=== PATIENT | female | born 1995 | race Caucasian/White ===

== ENCOUNTER 2022-06-12 10:59 | Outpatient (CLI) | payer OTHER, SELFPAY ==
--- NOTE | 2022-06-12 11:23 | US_ITS ---
WS: [id number] OBSTETRICAL ULTRASOUND COMPLETE HISTORY: 14 WEEKS GESTATION COMPARISON: None available. Single intrauterine gestation in transverse presentation. head on maternal LEFT. Cervix is Closed and normal length. Cervical length is 4.0 cm. Normal amount of amniotic fluid surrounds the fetus. Placenta: Anterior, prominent [place] distorting the lower uterine segment. Causing the placen ta to cross the cervical os. As this [place] resolves will expect the cervical coverage to reso lve. Placenta grade 0 Heart: 150 BPM. Four chambers are identified. RIGHT and LEFT outflow tracts are unremarkable. Anatomy: Intracranial structures and spine are normal. kidneys, stomach and urinary bladd er are unremarkable. Abdominal wall, three-vessel cord and cord insertion site are normal. 4 extremities are present. profile: Limited by positioning of the fetus. Gender: Female. measurements: BPD = 4.1 cm = 18w4d; HC = 16.7 cm = 19w3d; AC = 13.8 cm = 19w2d; FL = 3.1 cm = 19w5d; EFW: 291 g. Not available. Biometry is internally concordant. AGA by ultrasound: 19w2d MIS by ultrasound: 11/04/2022 US/US OB >= 14 weeks fetus [id number] IMPRESSION: 1. Single intrauterine gestation of 19w2d with an IMS of 11/04/2022. 2. Limited visualization of the profile due to position of the fetus. Ot herwise anatomy is negative. 3. Lower uterine segment is distorted by a [place]. This is resulting in covering of the internal cervical os by placenta. Recommend follow-up during t he second trimester to be sure the placenta is no longer low lying.
== END 2022-06-12 11:00 | disposition home or self-care (01) ==
PROVIDERS: PCP Family Medicine; Visit Provider Family Medicine
DX: Z36.9 Encounter for antenatal screening, unspecified (principal)
CPT/HCPCS: 76805

== ENCOUNTER 2022-10-25 05:37 | Inpatient (IN) | payer OTHER, SELFPAY ==
[2022-10-25] VITALS (75 sets, daily range): BP systolic 87–172; BP diastolic 46–84; PULSE 79–118; RESP 17–18; TEMP 35.9–36.9; O2SAT 92–100; BMI 29.3
[2022-10-25] MEDS: lactated ringers 1,000 ML 999 ML IV ×2 (03:34→04:42)
[2022-10-25 03:48] LABS: Basophils # 0.1 10^3/uL (0.0-0.1); Basophils % 0.3 %; Eosinophils # 0.3 10^3/uL (0.0-0.8); Eosinophils % 2.2 %; Hemoglobin 11.9 g/dL (11.5-15.3); Lymphocytes # 2.6 10^3/uL (0.8-4.8); Lymphocytes % 17.5 %; Mean Corpuscular HGB Conc 33.1 g/dL (30.0-36.0); Mean Corpuscular Hemoglobin 30.1 pg (28.0-34.0); Mean Corpuscular Volume 91.1 fl (81-99); Mean Platelet Volume 11.2 fL (7.4-10.4); Monocytes # 1.6 10^3/uL (0.2-0.9); Monocytes % 10.9 %; Neutrophils # 10.11 10^3/uL (1.8-7.7); Neutrophils % 68.2 %; Nucleated Red Blood Cells % 0 %; Platelet Count 279 10^3/cmm (130-400); Red Blood Count 3.95 10^6/uL (4.1-5.3); Red Cell Distribution Width 13.2 % (12.1-15.1); White Blood Count 14.8 10^3/uL (4.0-10.0)
--- NOTE | 2022-10-25 04:41 | ANES.PREANE2 ---
Pre-Anesthetic Assessment Height/Weight: Height 1.68 m Weight 82.554 kg Pulse BP O2 Del Method 86 143/77 Room Air 10/25/22 02:54 10/25/22 02:54 10/25/22 03:19 Preop Diagnosis: labor Pain epidural Familial anesthetic complications: none Was Beta Norman taken within 24 hours: N/A Was Clonidine taken within 24 hours: N/A Social No alcohol and No tobacco Exam alert, oriented x 3, clear to auscultation bilaterally and regular rate & rhythm Airway Submandibular: within normal limits Cervical ROM: within normal limits Mallampati: Class II Dentition: full Pulmonary None reported CV/HEM None reported None reported Hepatic None reported GI None reported Metabolic None reported Musc/skel None reported Neuropsych None reported Anesthetic Plan ASA status: 1 Anesthesia: Regional (specify below) Risk of > 500 ml blood loss (7ml/kg in children): No Medications/Allergies Current Medications Generic Name Dose Route Start Last Admin Trade Name Freq PRN Reason Stop Dose Admin Lactated Ringer's 1,000 mls @ 999 mls/hr 10/25/22 03:18 10/25/22 03:34 Lactated Ringers IV 999 mls/hr .Q1H1M PRN Administration See label comments PFSH Anesthesia Female Reproductive History : 2 Data Anesthesia 10/25/22 03:10 Short CBC 10/25/22 Range/Units 03:10 WBC 14.8 H (4.0-10.0) 10^3/uL Hgb 11.9 (11.5-15.3) g/dL Hct 36.0 L (37.0-47.0) % MCV 91.1 (81-99) fl Plt Count 279 (130-400) 10^3/cmm Neut % (Auto) 68.2 % Neut # (Auto) 10.11 H (1.8-7.7) 10^3/uL Cardiac Studies: No Data to Display
--- NOTE | 2022-10-25 05:09 | ANES.PROC ---
Anesthesia Procedures Procedure/Date: 10/25/22 epidural Procedure Narrative: epidural complete, bolus given, epidural pump initiated with EXPANDED DUTY DENTAL ASSISTANT education given, vitals taken during procedure and satisfactory throughout, patient admits to decrease pain, report of procedure to OB RN Epidural: Time Out Performed: Yes Consents Signed: Procedure Consent Consent: requested by attending/covering physician, from patient, risks and benefits reviewed and patient agrees to proceed Lumbar Level: L3-L4 Epidural position: sitting Epidural procedure: sterile prep of area, 1% lidocaine to numb the area (3 mL), 18 g needle, negative for paresthesia passed, neg for paresthesia, test dose given, 1.5% xylocaine 1:200k epi (5 mL), 0.2% Ropivacaine bolus ml (5 mL), placed PCEA, no systemic response, sterile dressing applied, L.U.D. no apparent complications and 0.2% Ropiavacaine @ mls/hr (13 mL/hr)
[2022-10-25] MEDS: dextrose 5%-lactated ringers 1,000 ML 125 ML IV (06:32)
[2022-10-25] MEDS: ondansetron 2 mg/ML SDV 2 mL 4 MG IVP (08:28)
[2022-10-25] MEDS: oxytocin 30 UNIT/500 ML BAG IV (13:00)
--- NOTE | 2022-10-25 14:00 | PM.OPHPUD ---
Labor & Delivery H&P Update Date of Procedure: October 25, 2022 Date H&P Performed: 10/24/22 Admission Diagnosis: Preop diagnosis: labor Pain
--- NOTE | 2022-10-25 14:00 | PM.DELIVERY ---
Delivery Note: Date of delivery: October 25, 2022 Estimated blood loss (mL): 75 Pre-Delivery Course: She had routine care at [facility]. There were no complications during the . She is blood type O+, antibody negative, hepatitis B nonreactive, hepatitis C nonreactive, HIV nonreactive, rubella immune, GC chlamydia negative, RPR nonreactive, urine drug screen negative, she passed her glucose tolerance test, she was GBS negative, rupture of membranes was approximately 10 hours prior to delivery. Delivery: This is a 27-year-old G2 now P2 at 38 weeks 6 days gestation who presented to labor and delivery in active labor with spontaneous rupture of membranes. She received an epidural for pain management. She had a normal spontaneous vaginal delivery of a viable female infant weight 3500 g, 7 pounds 11 ounces, ROP, Apgars 8 and 9 over an intact perineum. The was suctioned at delivery and placed on the mother's chest. The cord was clamped and cut. The placenta was delivered grossly intact and normal to inspection. There were no lacerations. Mother and were doing well after delivery Coding Level of Care Code Acute Code for Chg Fwd Diagnoses
[2022-10-25] MEDS: ibuprofen 800 mg tablet PO ×2 (15:22→20:00)
[2022-10-25] MEDS: benzocaine-menthol 78 gm Canister 1 SPRAY TOPICAL (16:11)
[2022-10-25] MEDS: lanolin oint 7 gm 1 APPLIC TOPICAL (16:11)
--- NOTE | 2022-10-25 16:23 | ANE.PACU2 ---
Inpatient post-anesthesia follow up: Airway intact: Yes Vital signs: Temperature 97.5 F Pulse Rate 90 Respiratory Rate Blood Pressure 120/58 Pulse Oximetry 92 Oxygen Delivery Me thod Room Air Oxygen Flow Rate Fraction of Inspir ed Oxygen Hydration adequate: Yes Nausea and vomiting: No Pain level: 2 Mental status: Baseline
[2022-10-25] MEDS: acetaminophen 325 mg Tablet 650 MG PO (17:25)
[2022-10-25] MEDS: docusate sodium 100 mg Capsule PO (17:25)
[2022-10-26] MEDS: acetaminophen 325 mg Tablet 650 MG PO (00:48)
[2022-10-26 02:41] LABS: Hematocrit 33.2 % (37.0-47.0); Hemoglobin 10.9 g/dL (11.5-15.3); Mean Corpuscular HGB Conc 32.8 g/dL (30.0-36.0); Mean Corpuscular Hemoglobin 30.1 pg (28.0-34.0); Mean Corpuscular Volume 91.7 fl (81-99); Mean Platelet Volume 10.9 fL (7.4-10.4); Platelet Count 229 10^3/cmm (130-400); Red Blood Count 3.62 10^6/uL (4.1-5.3); Red Cell Distribution Width 13.5 % (12.1-15.1); White Blood Count 20.2 10^3/uL (4.0-10.0)
[2022-10-26 04:00] VITALS: BP 106/67; PULSE 77; RESP 16; TEMP 36.6; O2SAT 97
--- NOTE | 2022-10-26 07:15 | P.DS_ITS ---
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 Hospital Course Hospital Course This is a 27-year-old that was initially admitted after spontaneous rupture membranes at home. The patient continued to progress as expected throughout her labor. Patient then delivered a well infant female vaginally that any complications. care has been unremarkable. Information Peripartum Data: Infant Delivery Method: Vaginal Physical Exam Const: COMMON NORMALS: no acute distress, healthy appearing and alert HENMT: COMMON NORMALS: normocephalic HEAD & SCALP: normocephalic Neck/C-Spine: COMMON NORMALS: no JVD Resp: COMMON NORMALS: normal respiratory effort and No retractions Cardio: COMMON NORMALS: no JVD, regular rate and regular rhythm RATE: regular rate RHYTHM: regular rhythm GI: COMMON NORMALS: Normal to inspection, nondistended, normoactive bowel sounds present Extremity: COMMON NORMALS: normal to inspection and no clubbing, cyanosis or edema Neuro: SENSORIUM/ORIENTATION: Yes alert Psych: COMMON NORMALS: mental status grossly normal, cooperative and normal affect Skin: COMMON NORMALS: no rashes or lesions noted GENERAL SKIN EXAM: no rashes or lesions noted Urinary Catheter Management: Maldonado: Cath Placed During This Visit: yes Reason for Continuing Indwelling Catheter: Accurate Measurement of Urinary Output in Critically Ill Patients Urinary Catheter Date of Insertion: 10/25/22 Urinary Catheter Time of Insertion: 05:45 Discharge Data Studies Completed and Pending Laboratory Results WBC 20.2 10^3/uL (4.0-10.0) H 10/26/22 02:30 RBC 3.62 10^6/uL (4.1-5.3) L 10/26/22 02:30 Hgb 10.9 g/dL (11.5-15.3) L 10/26/22 02:30 Hct 33.2 % (37.0-47.0) L 10/26/22 02:30 MCV 91.7 fl (81-99) 10/26/22 02:30 MCH 30.1 pg (28.0-34.0) 10/26/22 02:30 MCHC 32.8 g/dL (30.0-36.0) 10/26/22 02:30 RDW 13.5 % (12.1-15.1) 10/26/22 02:30 Plt Count 229 10^3/cmm (130-400) 10/26/22 02:30 MPV 10.9 fL (7.4-10.4) H 10/26/22 02:30 Neut % (Auto) 68.2 % 10/25/22 03:10 Lymph % (Auto) 17.5 % 10/25/22 03:10 [place] % (Auto) 10.9 % 10/25/22 03:10 Eos % (Auto) 2.2 % 10/25/22 03:10 Baso % (Auto) 0.3 % 10/25/22 03:10 Neut # (Auto) 10.11 10^3/uL (1.8-7.7) H 10/25/22 03:10 Lymph # (Auto) 2.6 10^3/uL (0.8-4.8) 10/25/22 03:10 [place] # (Auto) 1.6 10^3/uL (0.2-0.9) H 10/25/22 03:10 Eos # (Auto) 0.3 10^3/uL (0.0-0.8) 10/25/22 03:10 Baso # (Auto) 0.1 10^3/uL (0.0-0.1) 10/25/22 03:10 Nucleated RBC % (auto) 0 % 10/25/22 03:10 Nucleated RBCs # 0.0 /100WBC 10/25/22 03:10 Vitals Last Vital Signs Temp 97.9 F 10/26/22 04:00 Pulse 77 10/26/22 04:00 Resp 16 10/26/22 04:00 BP 106/67 10/26/22 04:00 Pulse Ox 97 10/26/22 04:00 O2 Del Method Room Air 10/26/22 04:00 Discharge Plan Discharge Patient Disposition: Home Condition: Good Discharge Orders: Discharge Order (Routine); Ordered 10/26/22 Ordered By: Koffi Gonzales Referrals: Lara Yu MD [Primary Care Provider] - 6 Weeks Discharge Diet: Usual diet Discharge Activity: Limit activity as instructed Patient Instructions: Opioid Safety Discharge Attestations CORE ANALYSIS 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
[2022-10-26] MEDS: ibuprofen 800 mg tablet PO (08:34)
[2022-10-26] MEDS: prenatal vitamin Capsule 1 CAP PO (08:34)
[2022-10-26] MEDS: docusate sodium 100 mg Capsule PO (08:34)
[2022-10-26 10:47] VITALS: BP 114/75; PULSE 75; RESP 16; TEMP 36.7; O2SAT 98
[2022-10-26 15:00] VITALS: BP 118/75; PULSE 77; RESP 18; TEMP 36.8; O2SAT 97
[2022-10-26 15:15] VITALS: BP 117/75; PULSE 76; RESP 14
== END 2022-10-26 16:00 | disposition home or self-care (01) | DRG 807 ==
LOC: OPOB 05:38 → OBGYN 05:38
PROVIDERS: Admitting Provider Family Medicine; PCP Family Medicine; Visit Provider Family Medicine
DX: O80 Encounter for full-term uncomplicated delivery (principal); Z37.0 Single live birth; Z3A.38 38 weeks gestation of pregnancy
CPT/HCPCS: 36415; 51702; 59025; 59409; 83986; 85025; 85027; 96374; 99211; J2405; J2590; J2795; J7120; J7121

== ENCOUNTER → 2024-04-20 09:58 | Outpatient (BNVA) | payer OTHER, SELFPAY | PROVIDERS: PCP Family Medicine; Visit Provider Nurse Practitioner Family | DX: J02.9 Acute pharyngitis, unspecified (principal); J02.0 Streptococcal pharyngitis | CPT/HCPCS: 87880 ==